=== PATIENT | male | born 1990 | race Hispanic/Latino ===

== ENCOUNTER 2017-11-12 08:42 | Emergency (ER) | payer OTHER ==
[2017-11-12 10:09] LABS: RAPID GROUP A STREP NEGATIVE (NEGATIVE)
== END 2017-11-12 10:23 | disposition home or self-care (01) ==
LOC: EDH 08:42
DX: J06.9 Acute upper respiratory infection, unspecified (principal)
CPT/HCPCS: 87804; 87880

== ENCOUNTER 2021-05-12 20:59 | Emergency (ER) | payer OTHER ==
[~2021-05-12] VITALS: Ht 177.8 cm; Wt 72.6 kg
[2021-05-12] MEDS ORDERED: IBUPROFEN 600 MG TABLET PO ONE (21:30)
[2021-05-12] MEDS ORDERED: IBUP-2070 PO (21:31)
[2021-05-12 22:02] VITALS: BP 132/76
== END 2021-05-12 22:03 | disposition home or self-care (01) ==
LOC: EDH 20:59
DX: M25.512 Pain in left shoulder (principal); Z79.1 Long term (current) use of non-steroidal anti-inflammatories (NSAID); V49.49XA Driver injured in collision with other motor vehicles in traffic accident, initial encounter; Y93.89 Activity, other specified; Y92.89 Other specified places as the place of occurrence of the external cause; Y99.8 Other external cause status
CPT/HCPCS: 99282

== ENCOUNTER 2023-11-25 18:51 | Emergency (ER) | payer OTHER ==
[~2023-11-25] VITALS: Ht 177.8 cm; Wt 77.1 kg
[~2023-11-25 18:51] MED LIST: IBUP-2070 PO
[2023-11-25 20:29] LABS: BASOPHILS # (AUTO) 0.04 K/uL (0.00-0.20); BASOPHILS % (AUTO) 0.6 % (0.0-5.0); EOSINOPHILS # (AUTO) 0.11 K/uL (0.00-0.70); EOSINOPHILS % (AUTO) 1.6 % (0.0-8.0); HEMATOCRIT 46.4 % (42-54); IMMATURE GRANULOCYTE ABSOLUTE 0.03 K/uL (0-1); LYMPHOCYTES # (AUTO) 1.8 K/uL (1.0-4.8); LYMPHOCYTES % (AUTO) 25.4 % (21.0-51.0); MEAN CORPUSCULAR HEMOGLOBIN 30.5 pg (27.0-33.0); MEAN CORPUSCULAR HGB CONC 35.1 g/dL (32.0-36.0); MEAN CORPUSCULAR VOLUME 86.7 fL (79-99); MONOCYTES # (AUTO) 0.6 K/uL (0.1-1.0); NEUTROPHILS # (AUTO) 4.5 K/uL (1.8-7.7); PLATELET COUNT (AUTO) 272 K/uL (130-400); RED BLOOD CELL COUNT(AUTO) 5.35 MIL/uL (4.50-6.20); RED CELL DISTRIBUTION WIDTH 11.7 % (11.0-15.5); WHITE BLOOD COUNT (AUTO) 7.1 K/uL (4.8-10.8)
[2023-11-25 20:41] LABS: CREATININE 0.9 mg/dL (0.5-1.3); POTASSIUM 4.4 mmol/L (3.5-5.1)
[2023-11-25] MEDS ORDERED: KETO10TA2 PO (21:01)
[2023-11-25 21:44] VITALS: BP 140/90; PULSE 70; RESP 16; TEMP 98.3; O2SAT 90
[2023-11-25] MEDS: ketOROlac 30MG VIAL (30MG/ML) IM ONE (21:59)
== END 2023-11-25 22:16 | disposition home or self-care (01) ==
LOC: EDH 18:51
DX: G44.209 Tension-type headache, unspecified, not intractable (principal)
CPT/HCPCS: 99285; 70450; 80048; 85025; 36415; 96372; J1885